=== PATIENT | female | born 1960 | race Caucasian/White ===

== ENCOUNTER 2016-05-23 17:49 | Inpatient (IN) | payer SELFPAY ==
--- NOTE | 2016-05-23 17:53 | EDPHY ---
H & P Time Seen by Provider: 05/23/16 17:53 HPI/ROS: CHIEF COMPLAINT: Flu-like symptoms since last night HISTORY OF PRESENT ILLNESS: 55-year-old female primarily Barbadian-speaking arrives via ambulance complaining of flu-like symptoms since last night, fever, rigor. She was at work and started to feel exacerbation of her symptoms therefore called 911. No influenza vaccination. No chest pain. No dyspnea. No back pain. No abdominal pain. No urinary complaints. No rash. No nuchal rigidity. No headache. No nasal congestion. No primary care provider. Recently moved here from [place], [place] REVIEW OF SYSTEMS: A ten point review of systems was performed and is negative with the exception of the items mentioned in the HPI PAST MEDICAL & SURGICAL HISTORY: No influenza vaccination. No immunosuppressed or compromised condition SOCIAL HISTORY: daily cigarette smoker. Lives in [place] PHYSICAL EXAM (Prior to examination, patient consented to physical exam, hands were washed and my usual and customary physical exam procedures followed) 1) GENERAL: Well-developed, well-nourished, alert and oriented. Appears nontoxic. Conversive. Pleasant. Answering questions appropriately. 2) HEAD: Normocephalic, atraumatic 3) HEENT: Pupils equal, round, reactive to light bilaterally. Sclera anicteric. Nasopharynx, oropharynx, clear, no lesions. Ears bilaterally with normal tympanic membranes. 4) NECK: Full range of motion, no meningeal signs. No adenopathy 5) LUNGS: Clear auscultation bilaterally, no wheezes, no rhonchi, no retractions. 6) HEART: Regular rate and rhythm, no murmur, no heave, no gallop. 7) ABDOMEN: No guarding, no rebound, no focal tenderness, negative McBurney's, negative Ba's, negative Rovsing's, negative peritoneal sign, unable to elicit any abdominal pain 8) MUSCULOSKELETAL: Moving all extremities, no focal areas of tenderness, no obvious trauma. No peripheral edema or discoloration. 9) BACK: No CVA tenderness. 10) SKIN: No rash, no petechiae. 11) Psychiatric: Patient is oriented X 3, there is no agitation. 12) rectal (performed with female nurse bedside ): normal rectal tone brown stool on glove DIFFERENTIAL DIAGNOSIS: no particular order including but not limited to meningitis, influenza, pneumonia Constitutional: Initial Vital Signs Temperature (C) 38.8 C H 05/23/16 17:49 Heart Rate 134 H 05/23/16 17:49 Respiratory Rate 20 05/23/16 17:49 Blood Pressure 124/45 H 05/23/16 17:49 O2 Sat (%) 94 05/23/16 17:49 O2 Delivery Mode Room Air Allergies/Adverse Reactions: Penicillins Allergy (Verified 05/23/16 17:55) Home Medications: Medication Instructions Recorded NK [No Known Home Meds] 05/23/16 Medical Decision Making - Diagnostics Imaging: Chest, Two Views at 1835 hours History: Meets sepsis criteria, suspected infection Comparison: None. Findings: Cardiac silhouette is within normal range. Possible alveolar opacity in left lower lobe. No pleural effusion or pneumothorax. Impression: Possible left lower lobe pneumonia. Dictated By: Sukhi Quintana Images reviewed by myself Pelvic ultrasound shows multiple uterine fibroids . CT abdomen pelvis shows no diverticulitis. Uterine fibroids as noted previously. Images reviewed by myself ED Course/Re-evaluation: 5:53 p.m.: This patient appears well overall, is answering questions appropriately. She has abnormal vital signs and meets initial sepsis screening criteria. 6:35 p.m.: Re-evaluation of the patient. Case discussed with Dr. Isaias Torres. She does meet severe sepsis criteria. We are still awaiting her influenza results. 2nd L of IV saline is started and will plan on rechecking lactate. Clinically, she continues to appear well, smiling, answering questions appropriately. 7:10 p.m.: Rectal examination performed by myself showing brown stool on glove. Urinalysis at this time reveals 1+ leukocytes and 10-15 WBCs. Urine is cultured. She is started on ceftriaxone. She is noted to have negative influenza swab. Still waiting 2nd lactate 7:25 p.m.: Patient's chest x-ray shows a possible left lower lobe pneumonia. She will be started on Levaquin which should provide coverage for pulmonary and urinary tract pepper. At this time she also notes that she is complaining of left lower quadrant abdominal pain. When I examine this area she has X she is exquisitely tender in the left lower quadrant. She was not initially tender on my initial exam. States that she always has pain here. And states that she has never had this evaluated. I have recommended CT imaging and pelvic ultrasonography to evaluate ovarian function as well as possibility of diverticulitis. 9:00 p.m.: Re-evaluation. Discussed her diagnostic results showing no diverticulitis, positive fibroids. Repeat lactate has normalized. She has received IV Levaquin. Plan will be admission for sepsis, urinary tract infection, left lower lobe pneumonia. 9:08 p.m.: Phone consultation with hospitalist Dr. Marie who will admit patient - Data Points Laboratory Results: Laboratory Results 05/23/16 17:50 05/23/16 17:50 05/23/16 05/23/16 05/23/16 20:28 19:10 18:45 WBC RBC Hgb Hct MCV MCH MCHC RDW Plt Count MPV Neut % (Auto) Lymph % (Auto) Meagher % (Auto) Eos % (Auto) Baso % (Auto) Nucleat RBC Rel Count Absolute Neuts (auto) Absolute Lymphs (auto) Absolute Monos (auto) Absolute Eos (auto) Absolute Basos (auto) Absolute Nucleated RBC Immature Gran % Immature Gran # Platelet Estimate Large Platelets Polychromasia Hypochromasia Microcytic Cells Elliptocytes Keratocytes Schistocytes Smear Review By PT INR APTT VBG Lactic Acid 1.2 D mmol/L (0.7-2.1) Sodium Potassium Chloride Carbon Dioxide Anion Gap BUN Creatinine Estimated GFR Glucose Calcium Total Bilirubin Beta HCG, Qual Urine Color YELLOW Urine Appearance HAZY Urine pH 6.0 (5.0-7.5) Ur Specific [place] 1.011 (1.002-1.030) Urine Protein NEGATIVE (NEGATIVE) Urine Ketones TRACE H (NEGATIVE) Urine Blood NEGATIVE (NEGATIVE) Urine Nitrate NEGATIVE (NEGATIVE) Urine Bilirubin NEGATIVE (NEGATIVE) Urine Urobilinogen NEGATIVE EU (0.2-1.0) Ur Leukocyte Esterase 1+ H (NEGATIVE) Urine RBC 1-3 /hpf (0-3) Urine WBC 10-15 H /hpf (0-3) Ur Epithelial Cells 1+ /lpf (NONE-1+) Urine Bacteria 4+ H /hpf (NONE SEEN) Urine Mucus TRACE /lpf (NONE-1+) Urine Glucose NEGATIVE (NEGATIVE) Stool Occult Bld Scrn NEGATIVE (NEGATIVE) Influenza Typ A,B (DFA) 05/23/16 05/23/16 05/23/16 18:15 18:10 18:02 WBC RBC Hgb Hct MCV MCH MCHC RDW Plt Count MPV Neut % (Auto) Lymph % (Auto) Meagher % (Auto) Eos % (Auto) Baso % (Auto) Nucleat RBC Rel Count Absolute Neuts (auto) Absolute Lymphs (auto) Absolute Monos (auto) Absolute Eos (auto) Absolute Basos (auto) Absolute Nucleated RBC Immature Gran % Immature Gran # Platelet Estimate Large Platelets Polychromasia Hypochromasia Microcytic Cells Elliptocytes Keratocytes Schistocytes Smear Review By PT INR APTT VBG Lactic Acid 2.4 H mmol/L REJ (0.7-2.1) Sodium Potassium Chloride Carbon Dioxide Anion Gap BUN Creatinine Estimated GFR Glucose Calcium Total Bilirubin Beta HCG, Qual Urine Color Urine Appearance Urine pH Ur Specific [place] Urine Protein Urine Ketones Urine Blood Urine Nitrate Urine Bilirubin Urine Urobilinogen Ur Leukocyte Esterase Urine RBC Urine WBC Ur Epithelial Cells Urine Bacteria Urine Mucus Urine Glucose Stool Occult Bld Scrn Influenza Typ A,B (DFA) NEGATIVE FOR FLU (NEGATIVE) 05/23/16 17:50 WBC 6.52 10^3/uL (3.80-9.50) RBC 5.41 H 10^6/uL (4.18-5.33) Hgb 8.9 L g/dL (12.6-16.3) Hct 32.9 L % (38.0-47.0) MCV 60.8 L fL (81.5-99.8) MCH 16.5 L pg (27.9-34.1) MCHC 27.1 L g/dL (32.4-36.7) RDW 19.1 H % (11.5-15.2) Plt Count 158 10^3/uL (150-400) MPV TNP Neut % (Auto) 86.9 H % (39.3-74.2) Lymph % (Auto) 9.7 L % (15.0-45.0) Meagher % (Auto) 2.1 L % (4.5-13.0) Eos % (Auto) 0.3 L % (0.6-7.6) Baso % (Auto) 0.2 L % (0.3-1.7) Nucleat RBC Rel Count 0.0 % (0.0-0.2) Absolute Neuts (auto) 5.67 10^3/uL (1.70-6.50) Absolute Lymphs (auto) 0.63 L 10^3/uL (1.00-3.00) Absolute Monos (auto) 0.14 L 10^3/uL (0.30-0.80) Absolute Eos (auto) 0.02 L 10^3/uL (0.03-0.40) Absolute Basos (auto) 0.01 L 10^3/uL (0.02-0.10) Absolute Nucleated RBC 0.00 10^3/uL (0-0.01) Immature Gran % 0.8 % (0.0-1.1) Immature Gran # 0.05 10^3/uL (0.00-0.10) Platelet Estimate ADEQUATE (ADEQ) Large Platelets PRESENT H Polychromasia 1+ H Hypochromasia 2+ H Microcytic Cells 2+ H Elliptocytes 1+ H Keratocytes 1+ H Schistocytes 2+ H Smear Review By Pending PT 15.8 H SEC (12.0-15.0) INR 1.26 H (0.83-1.16) APTT 26.8 SEC (23.0-38.0) VBG Lactic Acid Sodium 138 mEq/L (134-144) Potassium 4.6 mEq/L (3.5-5.2) Chloride 109 mEq/L (97-110) Carbon Dioxide 16 L mEq/l (22-31) Anion Gap 13 mEq/L (8-16) BUN 10 mg/dL (7-23) Creatinine 0.7 mg/dL (0.6-1.0) Estimated GFR > 60 Glucose 162 H mg/dL (70-100) Calcium 10.0 mg/dL (8.5-10.4) Total Bilirubin 0.5 mg/dL (0.1-1.4) Beta HCG, Qual NEGATIVE Urine Color Urine Appearance Urine pH Ur Specific [place] Urine Protein Urine Ketones Urine Blood Urine Nitrate Urine Bilirubin Urine Urobilinogen Ur Leukocyte Esterase Urine RBC Urine WBC Ur Epithelial Cells Urine Bacteria Urine Mucus Urine Glucose Stool Occult Bld Scrn Influenza Typ A,B (DFA) Medications Given: Discontinued Medications Acetaminophen (Tylenol) 1,000 mg PO EDNOW ONE Stop: 05/23/16 17:59 Last Admin: 05/23/16 18:05 Dose: 1,000 mg Ceftriaxone Sodium/Dextrose (Rocephin 1 Gm (Premix)) 50 mls @ 100 mls/hr IV EDNOW ONE PRN Reason: Protocol Stop: 05/23/16 19:38 Last Admin: 05/23/16 19:25 Dose: Not Given Levofloxacin/Dextrose (Levaquin 750 Mg (Premix)) 150 mls @ 100 mls/hr IV EDNOW ONE PRN Reason: Protocol Stop: 05/23/16 20:50 Last Admin: 05/23/16 19:36 Dose: 150 mls Ondansetron HCl (Zofran) 4 mg IVP EDNOW ONE Stop: 05/23/16 18:07 Last Admin: 05/23/16 18:06 Dose: 4 mg Sodium Chloride (Ns *For Sepsis Order Set Only*) 1,837 ml IV EDNOW ONE Stop: 05/23/16 18:01 Last Admin: 05/23/16 18:00 Dose: 1,837 ml Departure - Departure Disposition: [facility] Inpatient Acute Clinical Impression: Microcytic anemia Urinary tract infection Qualifiers: Urinary tract infection type: acute cystitis Hematuria presence: without hematuria Qualifier Code: (N30.00) Acute cystitis without hematuria Sepsis Qualifiers: Sepsis type: sepsis due to unspecified organism Qualifier Code: (A41.9) Sepsis , unspecified organism Pneumonia Qualifiers: Pneumonia type: due to unspecified organism Laterality: left Lung location: lower lobe of lung Qualifier Code: (J18.1) Lobar pneumonia, unspecified organism Condition: Fair
[2016-05-23] MEDS ORDERED: ACETAMINOPHEN 500 MG TAB PO ONE (17:58)
[2016-05-23] MEDS ORDERED: ACETAMINOPHEN 500 MG TAB ONE (17:59)
[2016-05-23] MEDS ORDERED: ONDANSETRON 4 MG/2 ML VIAL ONE (17:59)
[2016-05-23] MEDS ORDERED: NS 1,000 ML BAG *FOR SEPSIS ORDER SET ONLY IV ONE (18:00)
[2016-05-23] MEDS ORDERED: ONDANSETRON 4 MG/2 ML VIAL IVP ONE (18:06)
[2016-05-23 18:16] LABS: % IMMATURE GRANULYOCYTES 0.8 % (0.0-1.1); ABSOLUTE IMMATURE GRANULOCYTES 0.05 10^3/uL (0.00-0.10); ADD DIFF? NO; ADD MORPH? YES; ADD SCAN? NO; ATYPICAL LYMPHOCYTE FLAG 20 (0-99); FRAGMENT RBC FLAG 40 (0-99); HEMATOCRIT 32.9 % (38.0-47.0); HEMOGLOBIN 8.9 g/dL (12.6-16.3); LEFT SHIFT FLG 20 (0-99); LIPEMIA HEMOLYSIS FLAG 70 (0-99); MEAN CELL HEMOGLOBIN 16.5 pg (27.9-34.1); PLATELET CLUMPS FLAG 10 (0-99); PLATELET COUNT 158 10^3/uL (150-400); RED BLOOD CELL COUNT 5.41 10^6/uL (4.18-5.33); RED CELL DISTRIBUTION WIDTH 19.1 % (11.5-15.2)
[2016-05-23 18:22] LABS: MEAN CELL HEMOGLOBIN CONCENTR. 27.1 g/dL (32.4-36.7); MEAN CELL VOLUME 60.8 fL (81.5-99.8)
[2016-05-23 18:26] LABS: INR 1.26 (0.83-1.16); PROTIME(PATIENT) 15.8 SEC (12.0-15.0)
[2016-05-23 18:27] LABS: APTT 26.8 SEC (23.0-38.0)
[2016-05-23 18:29] LABS: ANION GAP 13 mEq/L (8-16); BILIRUBIN,TOTAL 0.5 mg/dL (0.1-1.4); CARBON DIOXIDE 16 mEq/l (22-31); CHLORIDE 109 mEq/L (97-110); CREATININE 0.7 mg/dL (0.6-1.0); GLOMERULAR FILTRATION RATE > 60; GLUCOSE 162 mg/dL (70-100); POTASSIUM 4.6 mEq/L (3.5-5.2); SODIUM 138 mEq/L (134-144)
[2016-05-23 18:56] LABS: ELLIPTOCYTES 1+; HYPOCHROMIA 2+; KERATOCYTES 1+; LARGE PLATELETS PRESENT; MICROCYTES 2+; PLATELET ESTIMATE ADEQUATE (ADEQ); POLYCHROMASIA 1+; SCHISTOCYTES 2+
[2016-05-23 18:57] LABS: COLOR YELLOW; LEUKOCYTE ESTERASE,URINE 1+ (NEGATIVE); NITRITE,URINE NEGATIVE (NEGATIVE)
--- NOTE | 2016-05-23 19:06 | DX ---
Chest, Two Views at 1835 hours History: Meets sepsis criteria, suspected infection Comparison: None. Findings: Cardiac silhouette is within normal range. Possible alveolar opacity in left lower lobe. No pleural effusion or pneumothorax. Impression: Possible left lower lobe pneumonia.
[2016-05-23 19:07] LABS: BACTERIA 4+ /hpf (NONE SEEN); MUCUS TRACE /lpf (NONE-1+)
[2016-05-23] MEDS ORDERED: IOPAMIDOL (ISOVUE-300) 100 ML BTL IV ONE (19:42)
--- NOTE | 2016-05-23 21:05 | US ---
Ultrasound Pelvic Complete History: Pelvic pain. Technique: Transabdominal and transvaginal imaging was obtained of the pelvis. Findings: The uterus measures 12.8 x 6.0 x 6.0 cm. Two large myometrial masses are visualized. One on the right measures 7.3 cm, and one on the left measures 6.4 cm. These large fibroids at the endo metrial stripe are also difficult to visualize. No evidence for free fluid. Neither ovary is visual ized. Impression: Leiomyomatous uterus. Neither ovary is visualized. Results called to Bassem Foy PA-C.
--- NOTE | 2016-05-23 21:45 | CT ---
CT Scan of the Abdomen and Pelvis (With Contrast) Indication: Abdominal pain. Possible diverticulitis. Technique: 90 mL of Isovue-300 were given intravenously by machine power injection. Multidetector h elical CT imaging was performed from the diaphragm to the symphysis pubis. Dose reduction techniques were utilized. Comparison: Ultrasound performed earlier today. Findings: Abdomen: The lung bases are clear. The heart size is within normal limits. The liver is unremarkab le. The gallbladder is unremarkable. The pancreas is unremarkable. The spleen is unremarkable. Byron th adrenal glands are normal in size and appearance. There is a tiny 1- to 2-mm calculus in the infe rior pole of the right kidney, which is nonobstructive. No evidence for hydronephrosis in either kid akle. Normal enhancement pattern to both kidneys. No significant abdominal lymphadenopathy. Pelvis: Moderate stool is seen in the colon. A few diverticuli are seen in the sigmoid colon but no findings for diverticulitis. Two large myometrial masses are seen in the uterus compatible with lei omyomas as seen on ultrasound today. No evidence for an adnexal mass. No evidence for a bladder susi culus. No significant free fluid in the pelvis. Impression: 1. Leiomyomatous uterus. 2. Moderate constipation. Mild diverticulosis, without evidence for diverticulitis. 3. Nonobstructive right nephrolithiasis. Results called and discussed with MANDA Armando, at May 23, 2016 at 2102 hours .
[2016-05-23] MEDS ORDERED: ZOLPIDEM TARTRATE 5 MG TAB PO PRN (22:04)
[2016-05-23] MEDS ORDERED: ONDANSETRON DISINTEGRATING 4 MG TAB PO PRN (22:04)
--- NOTE | 2016-05-23 22:11 | PDGENHP ---
History and Physical History and Physical: HISTORY AND PHYSICAL ADMISSION NOTE CC:Fever vomiting HISTORY: This patient comes into the ER tonight after 2 and half days of fever symptoms resulting finally today and some vomiting and feeling increasingly weak and tired. There have been very few other specific symptoms. She had occasional slight cough but nonproductive and no other upper respiratory or thoracic/ pulmonary symptoms. With the nausea and vomiting there was no abdominal pain no change in bowel function and no blood. She has not noticed any urinary frequency, dysuria, bladder pain or pain in the area of the kidneys. No headache, toothache, earache, myalgias or arthralgias, joint pains. She is not eating any suspicious foods, had any ill contacts, traveled outside of [facility], or had any other exposures that would lead to a fever illness. Initially here in the ER she was found have some tenderness in the lower abdomen but has not notice pain there in particular. 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, recently moved here from [place] MEDICATIONS: none PHYSICAL EXAMINATION: Vital Signs: initially febrile with some tachycardia but good blood pressure, currently off afebrile with pulse down to 100 Examination: General: alert, oriented, good mentation, relaxed Skin: warm, dry, good color, no rash HEENT: normal Neck: no mass or jvd Resps: relaxed Lungs: clear breath sounds Heart: regular, no murmur Abdomen: soft, nondistended, nontender, +BS, no mass Upper Extremities: normal Lower Extremities: no edema, warm No Bleeding or bruising Neurologic: normal speech/language, 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, no focal weakness IV site: looks normal LABORATORY DATA: -test for flu is negative -Microcytic anemia is present, with no prior laboratory data for comparison ; the MCV is low enough that I wonder if she might not have a chronic hemoglobinopathy or other red cell abnormality as opposed to iron deficiency; iron studies may well be abnormal at this moment due to her febrile illness but should be checked RADIOLOGY STUDIES: Ultrasound of the abdomen done in the ER: Uterine fibroids CT scan abdomen done in the ER, Radiologist reading not up yet, my personal interpretation of the images: the uterus is enlarged and lobular consistent with likely fibroids, but I see no other specific concerning abnormality with the radiologist's reading pending ASSESSMENT: # ACUTE FEBRILE ILLNESS OF UNCERTAIN ETIOLOGY # MICROCYTIC ANEMIA OF UNCERTAIN CHRONICITY OR ETIOLOGY # PROBABLE UTERINE FIBROIDS BASED ON CT AND ULTRASOUND In the ER the diagnosis for fever was pneumonia probably based largely on radiologist's suggestion of a possible infiltrate. On my assessment the patient has no symptoms of pneumonia and I do not see anything concerning on her chest x-ray nor hear anything in her lungs. I do not think she has pneumonia. She does have a few white blood cells on her urinalysis, but she has no urinary symptoms. It is possible that she has urinary tract infection but without symptoms that diagnosis is hard to confirm. There was some tenderness on the initial abdominal examination by the ER staff, but I do not have any pain or tenderness there now. CT scan is not very suggestive of any acute cause of pain nor is the ultrasound. The white blood cell count is normal , and she presented with nausea and vomiting. It is possible that this is a viral or other infectious gastritis. She Did have some tachycardia and minimally elevated lactate on presentation. Whether this is truly a sepsis or really more of a sign dehydration effects is uncertain but will continue to treat her as if this was in early sepsis and monitor closely. Her microcytic anemia is curious and of uncertain duration or etiology. MCV is low enough that I wonder if she might have some type of hemoglobinopathy or other red blood cell disorder. It is possible this is iron deficiency. I did not get any story of any bleeding from her, she does have abnormal uterus on ultrasound and CT which is suggestive of fibroids but I wonder she could be bleeding from whenever that is. Iron studies are worth checking though they may be made abnormal by her acute febrile illness, and will need to be interpreted cautiously PLANS: - placed on observation initially though depending on her progress may need inpatient conversion -IV hydration resuscitation will continue -Check iron studies to be interpreted cautiously -Fol-low cultures -Continue current antibiotics while waiting on cultures with Rocephin -DVT prophylaxis -At some point in the near future she should probably visit a rougher helper to evaluate her uterine findings on the imaging studies. She does not currently have a rougher helper. I have reviewed the patient's case in detail with Hayder Foy of the ER
[2016-05-23] MEDS: NS 1,000 ML IV SCH (23:14)
[2016-05-23] MEDS: ACETAMINOPHEN 325 MG TAB PO PRN (23:14)
[2016-05-24] MEDS: ACETAMINOPHEN 325 MG TAB PO PRN ×3 (04:31→17:19)
[2016-05-24] MEDS: NS 1,000 ML IV SCH (08:15)
[2016-05-24 08:27] LABS: % IMMATURE GRANULYOCYTES 0.5 % (0.0-1.1); ABSOLUTE IMMATURE GRANULOCYTES 0.03 10^3/uL (0.00-0.10); ADD DIFF? NO; ADD MORPH? YES; ADD SCAN? NO; ATYPICAL LYMPHOCYTE FLAG 0 (0-99); FRAGMENT RBC FLAG 40 (0-99); HEMATOCRIT 28.2 % (38.0-47.0); HEMOGLOBIN 7.6 g/dL (12.6-16.3); LEFT SHIFT FLG 30 (0-99); LIPEMIA HEMOLYSIS FLAG 70 (0-99); MEAN PLATELET VOLUME 9.6 fL (8.7-11.7); PLATELET CLUMPS FLAG 20 (0-99); PLATELET COUNT 138 10^3/uL (150-400); RED BLOOD CELL COUNT 4.76 10^6/uL (4.18-5.33); RED CELL DISTRIBUTION WIDTH 18.5 % (11.5-15.2)
[2016-05-24 08:31] LABS: MEAN CELL VOLUME 59.2 fL (81.5-99.8)
[2016-05-24 08:39] LABS: ANION GAP 7 mEq/L (8-16); CALCIUM 9.5 mg/dL (8.5-10.4); CARBON DIOXIDE 20 mEq/l (22-31); CHLORIDE 116 mEq/L (97-110); CREATININE 0.6 mg/dL (0.6-1.0); GLOMERULAR FILTRATION RATE > 60; GLUCOSE 105 mg/dL (70-100); POTASSIUM 4.3 mEq/L (3.5-5.2); SODIUM 143 mEq/L (134-144)
[2016-05-24 08:48] LABS: % SATURATION 4 % (20-55); TOTAL IRON BINDING CAPACITY 363 ug/dL (260-490)
[2016-05-24 09:13] LABS: MICROCYTES 2+; POLYCHROMASIA 1+
[2016-05-24 09:14] LABS: ELLIPTOCYTES 1+; HYPOCHROMIA 2+; PLATELET ESTIMATE ADEQUATE (ADEQ)
[2016-05-24] MEDS: ONDANSETRON 4 MG/2 ML VIAL IVP PRN (09:35)
--- NOTE | 2016-05-24 11:43 | HOSPPROG ---
Hospitalist Progress Note Assessment/Plan: Patient is a 55-year-old female who came to the emergency room after 2 and half days of fever that resulted in vomiting. She also is complaining of a cough and not that is not for Dr. mcneil. Today is my 1st encounter with the patient. Chart reviewed. #. Fevers * chest x-ray does not indicate pneumonia * influenza is negative * started on Ceftriaxone for possible UTI * temp 38.8 on admit #. headaches * she has hx of this/ improved w a cup of coffee * rarely takes ibuprofen * no nuchal rigidity #. microcytic anemia/iron deficiency * stool occult blood screen is negative * patient has not had any evaluation/no colonoscopy, or endoscopy * unlikely to get care/ spoke with Dr Abbasi and he will see her / appreciate him! * ? peptic ulcer disease #. Hypotension * fluids #. probable uterine fibroids * no pain/ will have her f/u with a clinic director #. Plan: she will require another midnight stay/ she needs further evaluation by GI/ will get repeat labs in a.m. Subjective: Pattie said she is feeling overall fine but has a headache. Objective: Vital Signs Temp Pulse Resp BP Pulse Ox 38.2 C 86 16 99/53 L 97 05/24/16 08:00 05/24/16 08:00 05/24/16 08:00 05/24/16 08:00 05/24/16 08:00 Laboratory Results 05/24/16 08:08 05/24/16 08:08 05/23/16 05/24/16 05/25/16 05:59 05:59 05:59 Intake Total 2920 Balance 2920 PT 15.8 SEC (12.0-15.0) H 05/23/16 17:50 INR 1.26 (0.83-1.16) H 05/23/16 17:50 - Physical Exam Constitutional: appears nourished Eyes: PERRL Ears, Nose, Mouth, Throat: hearing normal Cardiovascular: regular rate and rhythym Respiratory: no respiratory distress Gastrointestinal: normoactive bowel sounds Skin: warm, No normal color (pale) Musculoskeletal: full muscle strength Neurologic: AAOx3 Psychiatric: interacting appropriately, not anxious ICD10 Worksheet Patient Problems: Problems Problem Status Diagnosed Microcytic anemia Acute Pneumonia Acute Sepsis Acute Urinary tract infection Acute
[2016-05-24] MEDS: ENOXAPARIN 40 MG/0.4 ML SYR SC SCH (15:23)
[2016-05-24] MEDS ORDERED: GOLYTELY 4000 ML BTL PO ONE (17:04)
--- NOTE | 2016-05-24 18:54 | GCON ---
[f rep st] CONSULTATION CHIEF COMPLAINT: Microcytic anemia. HISTORY OF PRESENT ILLNESS: This is a very pleasant 55-year-old woman who is referred for consultati on for microcytic anemia by Jovi Chaudhary. She was admitted yesterday through the emergency departm ent. She had been having 2-1/2 day history of fever with some vomiting and feeling fatigued. She di d have a slight cough that was nonproductive. She had some nausea with some vomiting as well. She h ad no significant abdominal pain. She has had some problems with constipation. She had a CT scan of the abdomen that was unremarkable other than diverticulosis. On laboratory test ing, she did not have an elevated white count, it was 5.89; however, she did have a low hemoglobin of 7.6 with hematocrit 28.2, her MCV was 59.2. PT was 1.26 and INR was 115.8. She has no family histo ry of colorectal cancer, colon polyps. She has not had a previous colonoscopy. She has been taking frequent NSAIDs for her fever and history of headaches. Asked to see patient for further evaluation. PAST MEDICAL HISTORY: Negative. PAST SURGICAL HISTORY: Negative. FAMILY HISTORY: Negative as it pertains to chief complaint. 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 Nonsmoker, nondrinker. MEDICATIONS: None prior to admission other than [id number] medications. ALLERGIES: She has no known drug allergies. REVIEW OF SYSTEMS: Negative for 10 systems other than mentioned in HPI. PHYSICAL EXAMINATION: VITAL SIGNS: 101/45, heart rate 75, respiratory rate 18, 92% sat on room air. 36.8 Celsius is temperature. GENERAL: She is a very pleasant woman, in no acute distress. HEENT: Normocephalic, atraumatic. EOMI. NECK: Supple. No cervical adenopathy. No thyromegaly. LUNGS: Clear. CARDIAC: Normal S1, S2, without murmur. ABDOMEN: Benign, soft. Normoactive bowel sounds . No hepatosplenomegaly. EXTREMITIES: Without clubbing, cyanosis, edema. NEURO: Nonfocal with cr anial nerves 2-12 intact. SKIN: Warm and dry. PSYCH: Alert and oriented x3 with normal affect. LABORATORY DATA: Serum sodium 143, potassium 4.3, chloride 116, CO2 20, BUN of 6, blood sugar 105, i marcial of 15, TIBC of 363, iron saturation 4, ferritin is 13. White count of 5.89, hemoglobin 7.6, dion tocrit 28.2 with an MCV of 59.2, platelets 138,000. IMPRESSION: A 55-year-old woman admitted to the hospital with fever, no clear origin identified. Th e patient also with anemia and microcytic indices. RECOMMENDATIONS: Clear liquid diet. Prep with GoLYTELY 4 L, n.p.o. after midnight. We will proceed with diagnostic endoscopy with small bowel biopsies and colonoscopy. We will follow with you. /[id number]/[id number]
[2016-05-24] MEDS: traMADol 50 MG TAB PO PRN (21:17)
[2016-05-24] MEDS ORDERED: oxyCODONE IR 5 MG TAB PO PRN (22:36)
[2016-05-24] MEDS ORDERED: KETOROLAC 15 MG/1 ML SDV IVP ONE (22:41)
[2016-05-24] MEDS ORDERED: LIDOCAINE 1% 2 ML INJ IF ONE (23:10)
[2016-05-24] MEDS ORDERED: BENZOCAINE UNIT DOSE SPRAY HURRICAINE MM ONE (23:25)
[2016-05-25] MEDS: ONDANSETRON 4 MG/2 ML VIAL IVP PRN ×3 (02:09→14:12)
[2016-05-25 05:41] LABS: ANION GAP 7 mEq/L (8-16); CALCIUM 9.8 mg/dL (8.5-10.4); CARBON DIOXIDE 22 mEq/l (22-31); CHLORIDE 113 mEq/L (97-110); CREATININE 0.6 mg/dL (0.6-1.0); GLOMERULAR FILTRATION RATE > 60; GLUCOSE 111 mg/dL (70-100); POTASSIUM 4.3 mEq/L (3.5-5.2); SODIUM 142 mEq/L (134-144)
[2016-05-25] MEDS: ENOXAPARIN 40 MG/0.4 ML SYR SC SCH (09:15)
[2016-05-25 09:33] LABS: % IMMATURE GRANULYOCYTES 0.7 % (0.0-1.1); ABSOLUTE IMMATURE GRANULOCYTES 0.02 10^3/uL (0.00-0.10); ADD DIFF? NO; ADD MORPH? YES; ADD SCAN? NO; ATYPICAL LYMPHOCYTE FLAG 0 (0-99); FRAGMENT RBC FLAG 40 (0-99); HEMATOCRIT 27.9 % (38.0-47.0); HEMOGLOBIN 7.4 g/dL (12.6-16.3); LEFT SHIFT FLG 10 (0-99); LIPEMIA HEMOLYSIS FLAG 70 (0-99); MEAN CELL HEMOGLOBIN 16.3 pg (27.9-34.1); PLATELET CLUMPS FLAG 30 (0-99); PLATELET COUNT 125 10^3/uL (150-400); RED BLOOD CELL COUNT 4.55 10^6/uL (4.18-5.33); RED CELL DISTRIBUTION WIDTH 19.1 % (11.5-15.2)
[2016-05-25 09:39] LABS: MEAN CELL HEMOGLOBIN CONCENTR. 26.5 g/dL (32.4-36.7); MEAN CELL VOLUME 61.3 fL (81.5-99.8)
[2016-05-25 10:06] LABS: ELLIPTOCYTES 1+; GIANT PLATELETS PRESENT; HYPOCHROMIA 2+; MICROCYTES 3+; PLATELET ESTIMATE DECREASED (ADEQ); POLYCHROMASIA 1+
--- NOTE | 2016-05-25 10:17 | HOSPPROG ---
Hospitalist Progress Note Assessment/Plan: Patient is a 55-year-old female who came to the emergency room after 2 and half days of fever that resulted in vomiting. Reviewed her care last evening w Dr Abbasi. Also, met w her w the extrusion press operator. She can understand and speak [place] , but had a much clearer understanding of plan of care today with the extrusion press operator explaining. #. Fevers * chest x-ray does not indicate pneumonia * none further #. UTI * urine cx shows e coli * ceftriaxone #. headaches * she has hx of this/ improved w a cup of coffee * rarely takes ibuprofen * no nuchal rigidity * had a bad headache this morning w nausea/ is npo and drinks coffee regularly * meds ordered #. microcytic anemia/iron deficiency * stool occult blood screen is negative * to have colonoscopy, endoscopy * appreciate Dr Abbasi #. Constipation * patient takes MOM frequently * encouraged her to eat high fiber diet and try Miralax #. Hypotension * fluids #. probable uterine fibroids * no pain/ will have her f/u with a senior web designer #. Plan: NPO for endoscopy and colonoscopy Subjective: Pattie is c/o headache w associated nausea. Objective: Vital Signs Temp Pulse Resp BP Pulse Ox 36.6 C 60 16 128/64 H 92 05/25/16 08:00 05/25/16 08:00 05/25/16 08:00 05/25/16 08:00 05/25/16 08:00 Laboratory Results 05/25/16 04:29 05/25/16 04:29 05/24/16 05/25/16 05/26/16 05:59 05:59 05:59 Intake Total 2500 Output Total 150 Balance 2350 PT 15.8 SEC (12.0-15.0) H 05/23/16 17:50 INR 1.26 (0.83-1.16) H 05/23/16 17:50 - Physical Exam Constitutional: appears nourished, uncomfortable, No not in pain Eyes: PERRL Ears, Nose, Mouth, Throat: hearing normal Cardiovascular: regular rate and rhythym Respiratory: no respiratory distress Gastrointestinal: normoactive bowel sounds Skin: warm, No normal color (pale) Musculoskeletal: full muscle strength, no muscle tenderness Neurologic: AAOx3 Psychiatric: interacting appropriately, anxious ICD10 Worksheet Patient Problems: Problems Problem Status Diagnosed Microcytic anemia Acute Pneumonia Acute Sepsis Acute Urinary tract infection Acute
[2016-05-25] MEDS ORDERED: fentaNYL 100 MCG/2 ML INJ ONE (10:26)
[2016-05-25] MEDS ORDERED: MIDAZOLAM 2 MG/2 ML VIAL ONE (10:26)
--- NOTE | 2016-05-25 11:39 | SOAPPROG ---
[facility] Progress Note Assessment/Plan: Assessment: Plan: Will sign off, Patient can follow up with Dr. Wilkins as an outpatient. 05/25/16 11:38 Objective: Vital Signs Temp Pulse Resp BP Pulse Ox 36.6 C 60 16 128/64 H 92 05/25/16 08:00 05/25/16 08:00 05/25/16 08:00 05/25/16 08:00 05/25/16 08:00 Laboratory Results 05/25/16 04:29 05/25/16 04:29 05/24/16 05/25/16 05/26/16 05:59 05:59 05:59 Intake Total 2500 Output Total 150 Balance 2350 PT 15.8 SEC (12.0-15.0) H 05/23/16 17:50 INR 1.26 (0.83-1.16) H 05/23/16 17:50 ICD10 Worksheet Patient Problems: Problems Problem Status Diagnosed Microcytic anemia Acute Pneumonia Acute Sepsis Acute Urinary tract infection Acute
[2016-05-25] MEDS: traMADol 50 MG TAB PO PRN (13:51)
[2016-05-25] MEDS ORDERED: IBUPROFEN 600 MG TAB PO ONE (15:59)
[2016-05-25] MEDS: NS 1,000 ML IV SCH (16:02)
--- NOTE | 2016-05-25 16:06 | GPN ---
[f rep st] PROCEDURE NOTE PROCEDURE: Esophagogastroduodenoscopy with biopsy and colonoscopy. PREOPERATIVE DIAGNOSIS: Iron deficiency anemia. POSTOPERATIVE DIAGNOSIS: 1. Normal upper endoscopy, status post duodenal biopsies to rule out celiac disease. 2. Status post gastric biopsies. 3. Normal colonoscopy to the cecum with left-sided diverticulosis. INDICATIONS: A 55-year-old woman admitted to the hospital with fever of unknown origin. She has had a history of microcytic anemia. She has had no change in bowel habits. She has not had previous en doscopy or colonoscopy. Presents for diagnostic endoscopy and colonoscopy. PHYSICAL EXAMINATION: VITAL SIGNS: Stable. LUNGS: Clear. CARDIAC: Normal S1, S2 without murmur. PERMIT: The procedure was explained to the patient. The risks and benefits of the procedure outline d to the patient. Informed consent was obtained. PREOPERATIVE MEDICATIONS: Fentanyl 125 mcg, 6 mg of Versed. SEDATION TIME: 20 minutes. FINDINGS OF PROCEDURE: The patient was placed in the left lateral decubitus position. GIF-180 video endoscope was passed in the oropharynx on direct visualization to the esophagus, stomach, to the pylo ezequiel, the 1st and 2nd portion of the duodenum. The duodenal sweep was normal. Biopsy taken from the 2nd portion of the duodenum to evaluate for celiac disease. The scope was brought back in the stomac h. Retroflex view of the stomach revealed a normal angularis, fundus, and cardia. Endoscope was un- retroflexed and a normal-appearing antrum and body. Biopsies were obtained for H pylori. Endoscope was then withdrawn. The patient was turned. Rectal exam performed. No masses felt in rectal vault. The PCF-180 video e ndoscope was passed in the rectum under direct visualization of the cecum. The cecum was identified by visualization of the ileocecal valve and appendiceal orifice. Colonic prep was good. Colonoscope was withdrawn with careful inspection of the colonic segments. The cecum, ascending colon, hepatic flexure, transverse colon, splenic flexure, descending colon were normal. There was diverticulosis i n the sigmoid colon and descending colon, moderate. Remainder of the descending colon and sigmoid co piper were normal. Rectum was normal. Retroflex view of the rectum was unremarkable. Colonoscope was un-retroflexed and withdrawn. IMPRESSION: Essentially normal upper endoscopy and colonoscopy. Status post small bowel biopsies fo r celiac disease/villous atrophy. Also, status post biopsy for Helicobacter pylori. RECOMMENDATIONS: Would recommend small bowel follow-through. Consider capsule endoscopy as an outpa tient. Recommend hematology evaluation. We will follow with you. Thank you for allowing us to participate in the care of this patient. /[id number]/MODL
[2016-05-25 16:23] LABS: LACTATE DEHYDROGENASE 400 IU/L (313-618)
[2016-05-25 16:32] LABS: SEDIMENTATION RATE 10 MM/HR (0-30)
[2016-05-26 04:59] LABS: % IMMATURE GRANULYOCYTES 0.6 % (0.0-1.1); ABSOLUTE IMMATURE GRANULOCYTES 0.03 10^3/uL (0.00-0.10); ABSOLUTE NRBC COUNT 0.02 10^3/uL (0-0.01); ADD DIFF? NO; ADD MORPH? YES; ADD SCAN? NO; ATYPICAL LYMPHOCYTE FLAG 0 (0-99); FRAGMENT RBC FLAG 40 (0-99); HEMATOCRIT 28.6 % (38.0-47.0); HEMOGLOBIN 7.5 g/dL (12.6-16.3); LEFT SHIFT FLG 0 (0-99); LIPEMIA HEMOLYSIS FLAG 60 (0-99); NRBC-AUTO% 0.4 % (0.0-0.2); PLATELET CLUMPS FLAG 10 (0-99); PLATELET COUNT 160 10^3/uL (150-400); RED CELL DISTRIBUTION WIDTH 18.8 % (11.5-15.2)
[2016-05-26 05:25] LABS: MEAN CELL HEMOGLOBIN CONCENTR. 26.2 g/dL (32.4-36.7); MEAN CELL VOLUME 60.9 fL (81.5-99.8)
[2016-05-26 06:02] LABS: ELLIPTOCYTES 1+; HYPOCHROMIA 2+; MICROCYTES 3+; PLATELET ESTIMATE ADEQUATE (ADEQ)
[2016-05-26 06:03] LABS: LARGE PLATELETS PRESENT; POLYCHROMASIA 1+
[2016-05-26] MEDS: IBUPROFEN 200 MG TAB PO PRN ×3 (06:14→21:11)
[2016-05-26] MEDS: NS 1,000 ML IV SCH (06:14)
--- NOTE | 2016-05-26 09:22 | HOSPPROG ---
Hospitalist Progress Note Assessment/Plan: Patient is a 55-year-old female who came to the emergency room after 2 and half days of fever that resulted in vomiting. Also, met w her w the egg candler. She can understand and speak [place], but had a much clearer understanding of plan of care today with the egg candler explaining. #. Fevers * chest x-ray does not indicate pneumonia * none further #. UTI * urine cx shows e coli * ceftriaxone #. headaches/caffeine withdrawal * drinks red bull daily for energy * takes ibuprofen in addition/will give her ibuprofen for now #. microcytic anemia/iron deficiency * stool occult blood screen is negative * colonoscopy and endoscopy do not show any etiology of bleeding * to get small bowel through * concerned about multiple lab abnormalities/ Dr Holcomb to see her today/ appreciate his involvement #. Constipation * patient takes MOM frequently * encouraged her to eat high fiber diet and try Miralax #. Hypotension * resolved #. probable uterine fibroids * no pain/ will have her f/u with a security software engineer #. Plan: Dr Holcomb to see/ will also talk w CM/ she has no doctor, no insurance/ [facility]. Subjective: Pattie's headache is much improved today with caffeine and ibuprofen. Objective: Vital Signs Temp Pulse Resp BP Pulse Ox 36.8 C 53 L 16 109/45 L 96 05/26/16 07:18 05/26/16 07:18 05/26/16 07:18 05/26/16 07:18 05/26/16 07:18 Laboratory Results 05/26/16 04:14 05/25/16 04:29 05/25/16 05/26/16 05/27/16 05:59 05:59 05:59 Intake Total 2500 900 Output Total 150 Balance 2350 900 PT 15.8 SEC (12.0-15.0) H 05/23/16 17:50 INR 1.26 (0.83-1.16) H 05/23/16 17:50 - Physical Exam Constitutional: no apparent distress, chronically ill appearing Eyes: PERRL Ears, Nose, Mouth, Throat: hearing normal Cardiovascular: regular rate and rhythym Respiratory: no respiratory distress Gastrointestinal: normoactive bowel sounds Skin: warm, No normal color (pale) Musculoskeletal: no muscle tenderness Neurologic: AAOx3 Psychiatric: interacting appropriately ICD10 Worksheet Patient Problems: Problems Problem Status Diagnosed Microcytic anemia Acute Pneumonia Acute Sepsis Acute Urinary tract infection Acute
[2016-05-26] MEDS: ASCORBIC ACID 500 MG TAB PO SCH (09:59)
[2016-05-26] MEDS: SODIUM FERRIC GLUCONAT/SUCROSE 125 MG in NS 100 ML IV SCH (09:59)
--- NOTE | 2016-05-26 15:53 | DX ---
Small Bowel Follow-Through Series Clinical History: 55-year-old female inpatient with anemia and a prior normal EGD and colonoscopy. Technique: Initially, a wardrobe coordinator abdominal radiograph was obtained. Subsequently, the patient ingested E nterovue, and sequential overhead radiographs were obtained over a 1 hour timeframe, with supplementa ry spot fluoroscopy also obtained. Fluoroscopy Time: 1.0 minutes of (entrance dose of 52.9 mGy). Comparison Study: CT scan of the abdomen, dated 05/23/2016. Findings: The wardrobe coordinator abdominal radiograph is normal. Following Enterovue, there is normal positioning of the stomach, duodenum, jejunum, and the ileum. Spot films of the terminal ileum are normal. The pa tient was not focally tender with spot fluoroscopy. The small bowel intestinal transit time is normal , reaching the cecum by 60 minutes. There is no mucosal polypoid lesion, fixed stricture, or small [place] wel diverticulosis identified. Impression: Normal study.
[2016-05-26] MEDS: ACETAMINOPHEN 325 MG TAB PO PRN (19:31)
[2016-05-26 22:25] VITALS: RESP 16
--- NOTE | 2016-05-27 00:02 | GCON ---
[f rep st] CONSULTATION REASON FOR CONSULTATION: I was asked to evaluate this very pleasant, 55-year-old female with microcy tic anemia. IMPRESSION: I think patient does have some iron deficiency, which may be chronic. I do think given the degree of microcytosis, concomitant thalassemia is fairly likely. Gastroenterology evaluation is unremarkable. It might be reasonable to consider a capsule endoscopy as an outpatient. HISTORY OF THE PRESENT ILLNESS: A 55-year-old female, presented with fatigue which is fairly long-st anding. She also had a fever and some vomiting. White count on admission was 6.52, hemoglobin 8.9, hematocrit 32.9, MCV 60.8, platelets 158,000. Smear showed polychromasia, hypochromasia and microcyt osis and leukocytosis, keratocytes and schistocytes. Sedimentation rate was normal. Chemistry panel was unremarkable. Ferritin was low at 13, serum iron 15, TIBC 363. PAST MEDICAL HISTORY: Generally unremarkable. She is post menopausal. ALLERGIES: She has a mild penicillin allergy. FAMILY HISTORY: Noncontributory. PHYSICAL EXAM: GENERAL: She is alert and oriented. VITAL SIGNS: Blood pressure 124/56, heart rate 58, respiratory rate 18. HEENT: She is not icteric. I detect no adenopathy. LUNGS: Clear. CARD IAC: Unremarkable. ABDOMEN: Benign. EXTREMITIES: No edema. CT scan of the abdomen shows uterine fibroids, moderate constipation and a right kidney stone. Renal pelvic ultrasound confirms leiomyoma. Chest x-ray showed a question of a left lower lobe pneumonia. IMPRESSION: Significant microcytic anemia. I suspect iron deficiency and concomitant thalassemia. Gastrointestinal workup is reassuring that we are not missing an obvious malignancy, as are her CT sc an and pelvic ultrasound. She does have uterine leiomyoma but is not bleeding at this time. RECOMMENDATIONS: In addition to hemoglobin electrophoresis, I agree with IV iron supplementation. S he should have a CBC and repeat iron studies in about 6 weeks. I will be happy to follow her as an o utpatient. /[id number]/MODL
[2016-05-27 06:53] LABS: ABSOLUTE IMMATURE GRANULOCYTES 0.04 10^3/uL (0.00-0.10); ABSOLUTE NRBC COUNT 0.04 10^3/uL (0-0.01); ADD DIFF? NO; ADD MORPH? YES; ADD SCAN? NO; ATYPICAL LYMPHOCYTE FLAG 50 (0-99); HEMATOCRIT 28.2 % (38.0-47.0); HEMOGLOBIN 7.6 g/dL (12.6-16.3); LEFT SHIFT FLG 10 (0-99); LIPEMIA HEMOLYSIS FLAG 70 (0-99); MEAN CELL HEMOGLOBIN 16.1 pg (27.9-34.1); PLATELET CLUMPS FLAG 10 (0-99); PLATELET COUNT 175 10^3/uL (150-400); RED BLOOD CELL COUNT 4.73 10^6/uL (4.18-5.33); RED CELL DISTRIBUTION WIDTH 19.1 % (11.5-15.2)
[2016-05-27 06:55] LABS: FRAGMENT RBC FLAG 140 (0-99); MEAN CELL VOLUME 59.6 fL (81.5-99.8)
[2016-05-27 07:33] LABS: PLATELET ESTIMATE ADEQUATE (ADEQ)
[2016-05-27 07:34] LABS: ECHINOCYTES 1+; ELLIPTOCYTES 1+; HYPOCHROMIA 1+; MACROCYTES 1+; POLYCHROMASIA 1+; SCHISTOCYTES 1+
[2016-05-27] MEDS: ASCORBIC ACID 500 MG TAB PO SCH (08:59)
--- NOTE | 2016-05-27 09:14 | HOSPPROG ---
Hospitalist Progress Note Assessment/Plan: Patient is a 55-year-old female who came to the emergency room after 2 and half days of fever that resulted in vomiting. Also, met w her w the conference interpreter. #. Fevers * chest x-ray does not indicate pneumonia * none further #. UTI * urine cx shows e coli * ceftriaxone/recieved full treatment #. headaches/caffeine withdrawal * resolved w caffeine #. microcytic anemia/iron deficiency + likely underlying thalassemia * stool occult blood screen is negative * colonoscopy and endoscopy do not show any etiology of bleeding * small bowel through is negative * dc home on oral iron * may benefit from an OP capsule study #. Constipation * patient takes MOM frequently * encouraged her to eat high fiber diet and try Miralax #. Hypotension * resolved #. probable uterine fibroids * no pain/ will have her f/u with a bottling equipment sales representative #. Plan: dc home/ CM to have see [facility] doctor for f/u care Subjective: Pattie is feeling much better today. Objective: Vital Signs Temp Pulse Resp BP Pulse Ox 36.8 C 50 L 16 101/54 L 94 05/27/16 08:00 05/27/16 08:00 05/27/16 08:00 05/27/16 08:00 05/27/16 08:00 Laboratory Results 05/27/16 04:20 05/25/16 04:29 05/26/16 05/27/16 05/28/16 05:59 05:59 05:59 Intake Total 900 Balance 900 PT 15.8 SEC (12.0-15.0) H 05/23/16 17:50 INR 1.26 (0.83-1.16) H 05/23/16 17:50 - Physical Exam Constitutional: no apparent distress, appears nourished, not in pain Eyes: PERRL Ears, Nose, Mouth, Throat: hearing normal Cardiovascular: regular rate and rhythym Respiratory: no respiratory distress Gastrointestinal: normoactive bowel sounds Skin: warm, No normal color (pale) Musculoskeletal: full muscle strength Neurologic: AAOx3 Psychiatric: interacting appropriately ICD10 Worksheet Patient Problems: Problems Problem Status Onset Microcytic anemia Acute Pneumonia Acute Sepsis Acute Urinary tract infection Acute
[2016-05-27] MEDS: SODIUM FERRIC GLUCONAT/SUCROSE 125 MG in NS 100 ML IV SCH (09:40)
[2016-05-27] MEDS: ACETAMINOPHEN 325 MG TAB PO PRN (11:00)
[2016-05-27 11:48] VITALS: BP 121/52; PULSE 65; TEMP 97.7; O2SAT 98
--- NOTE | 2016-05-27 11:49 | GDS ---
[f rep st] DISCHARGE SUMMARY DISCHARGE DIAGNOSES: 1. Fevers, most likely related to a urinary tract infection. 2. Urinary tract infection treated with ceftriaxone. 3. Caffeine withdrawal headaches. 4. Microcytic anemia/iron deficiency and likely thalassemia. 5. Constipation. 6. Hypotension. 7. Uterine fibroid. CONSULTATIONS: 1. Dr. Sudha Holcomb. 2. Dr. Chris Abbasi. BRIEF HISTORY: Pattie Simons is a very sweet 55-year-old woman who presented to the emergency room with 2-1/2 days of fever. She started having some vomiting and feeling weak and tired. There were very few other specific symptoms. She was admitted and she was noted to have an acute febrile illness, most likely due to a urinary tract infection. Her chest x-ray did not show any evidence of pneumonia. She was treated with ceftriaxone for urinary tract infection. She was seen and evaluated by Dr. Abbasi for further evaluation of her microcytic anemia. On 05/25/2016, she had an EGD with biopsy and colonoscopy that showed a normal upper endoscopy status post duodenal biopsies to rule out celiac disease. She had a normal colonoscopy to the cecum with left-sided diverticulosis. In addition, a small bowel follow-through study was performed. This was normal. Because of her ongoing anemia, she was seen and evaluated by Dr. Justin Holcomb with Hematology. He suspected that she has iron deficiency anemia with concomitant thalassemia. He noted that it is reassuring that we are not missing any obvious malignancy. He recommended that she get a hemoglobin electrophoresis and continue IV iron supplementation while she is here. Today, she is feeling markedly better. She has received IV iron. She will be discharged home and follow up with [facility]. HOSPITAL COURSE PER PROBLEM: 1. Fevers. She has had none further during her stay. 2. Urinary tract infection. Her urine culture showed E coli. She received ceftriaxone. 3. Caffeine withdrawal headaches. This is improved with use of caffeine. 4. Microcytic anemia/iron deficiency plus likely thalassemia. Further followup with Dr. Holcomb. Also recommendation for her to get an outpatient capsule study. 5. Constipation. Encouraged her to eat a high-fiber diet. 6. Hypertension, resolved. 7. Uterine fibroids. She will be set up with [facility] and she will need further evaluation by a shipper. PENDING LABS: She has multiple labs pending. CONDITION AT DISCHARGE: Stable. Blood pressure is 101/54, heart rate is 50, respiratory rate is 16, O2 saturations on room air 94%, temperature is 36.8 Celsius. MEDICATIONS AT DISCHARGE: Please see the EMR. DISCHARGE INSTRUCTIONS: 1. She needs to get a PCP set up. Case management is arranging that now at [facility]. 2. She will need to get further evaluation of her fibroid. 3. To follow up with Dr. Holcomb. He also will try to follow up with her in addition. 4. She will need a repeat CBC and chemistry panel in approximately 6 weeks. Greater than 30 minutes discharging and coordinating care. Copy requested to: [facility] /[id number]/MODL MTDD
[2016-05-29 13:38] LABS: HEMOGLOBIN A 98.2 % (95.8-98.0); HEMOGLOBIN A2 1.8 % (2.0-3.3)
== END 2016-05-27 13:39 | disposition home or self-care (01) | DRG 690 ==
LOC: INTOOBSV 21:28 → F3E 22:26 → OBSVTOIN 05-24 17:35
PROVIDERS: ADMIT Internal Medicine; ATTEND Internal Medicine
PROC: 0DJD8ZZ Inspection of Lower Intestinal Tract, Via Natural or Artificial Opening Endoscopic (ICD-10-PCS; principal; 2016-05-25 10:53)
PROC: 0DB98ZX Excision of Duodenum, Via Natural or Artificial Opening Endoscopic, Diagnostic (ICD-10-PCS; principal; 2016-05-25 10:53)
PROC: 0DB68ZX Excision of Stomach, Via Natural or Artificial Opening Endoscopic, Diagnostic (ICD-10-PCS; principal; 2016-05-25 10:53)
DX: N39.0 Urinary tract infection, site not specified (principal); D50.9 Iron deficiency anemia, unspecified; E03.9 Hypothyroidism, unspecified; D25.9 Leiomyoma of uterus, unspecified; K59.00 Constipation, unspecified
CPT/HCPCS: 83020-90; 96365; G0378; J0696; J1885; J1956; J2250; J2405; J2916; J3010; Q9967